=== PATIENT | female | born 1965 | race Caucasian/White ===

== ENCOUNTER 2016-10-06 23:04 | Emergency (ER) | payer OTHER ==
[~2016-10-06] VITALS: Ht 170.2 cm; Wt 58.6 kg
[2016-10-06 23:12] VITALS: BP 139/102; PULSE 115; RESP 14; TEMP 98.3; O2SAT 98
--- NOTE | 2016-10-06 23:52 | RADRPT ---
EXAM DATE/TIME: 10/06/2016 23:21 [place] COMPARISON: No previous studies available for comparison. INDICATIONS : Hand pain. Fell from dog taking off while walking with a leash. MEDICAL HISTORY : None. SURGICAL HISTORY : None. ENCOUNTER: Initial ACUITY: 1 day PAIN SCORE: 7/10 LOCATION: Left upper extremity Hand FINDINGS: Three view examination of the left hand demonstrates no soft tissue swelling, dislocation, or fractur e. The carpal bones appear intact. The interphalangeal and metacarpophalangeal joints are intact. Bony mineralization is normal. CONCLUSION: No acute fracture. Rex Hair MD on October 06, 2016 at 23:49 Board Certified Radiologist. This report was verified electronically.
--- NOTE | 2016-10-07 00:25 | PD ---
HPI Chief Complaint: Injury Time Seen by Provider: 00:20 Travel History International Travel<30 days: No Contact w/Intl Traveler<30days: No Traveled to known affect area: No History of Present Illness HPI The patient is a 51-year-old right-hand dominant female that fell on her hand 2 hours ago while walking the dog. She complains of diffuse pain, mostly around the mid metacarpal regions, metacarpals 2 through 4. Other than minor abrasions , she denies any other injury. PFSH Past Medical History ?: Not Social History Tobacco Use: Yes Review of Systems Except as stated in HPI: all other systems reviewed are Neg Physical Exam Narrative GENERAL: Well-nourished, well-developed patient in minimal apparent distress with her left hand discomfort. Her vital signs show pulse rate 115 blood pressure 139/102 but otherwise normal. SKIN: Focused skin assessment warm/dry. Several abrasions are present on the elbow and right hand. No associated bony deformity is present. HEAD: Normocephalic. EYES: No scleral icterus. No injection or drainage. NECK: Supple, trachea midline. No JVD or lymphadenopathy. CARDIOVASCULAR: Regular rate and rhythm without murmurs, gallops, or rubs. RESPIRATORY: Breath sounds equal bilaterally. No accessory muscle use. GASTROINTESTINAL: Abdomen soft, non-tender, nondistended. MUSCULOSKELETAL: No cyanosis, or edema. No bony deformity is present on the hand, good capillary refill and pinprick is present distally on the fingers. BACK: Nontender without obvious deformity. No CVA tenderness. Data Data Last Documented VS Vital Signs Date Time Temp Pulse Resp B/P Pulse Ox O2 Delivery O2 Flow Rate FiO2 10/06/16 23:12 98.3 115 14 139/102 98 Orders Hand, Complete ([id number]) (10/06/16 ) Ed Urine Pregnancytest Poc (10/06/16 23:16) MDM Medical Decision Making Medical Screen Exam Complete: Yes Emergency Medical Condition: Yes Medical Record Reviewed: Yes Differential Diagnosis Contusion hand, fracture hand, dislocation metacarpals Narrative Course The patient has a contusion of her left hand. Diagnosis Primary Impression: Contusion of left hand Additional Instructions: Keep the abrasions clean and dry and avoid exposing them to dish water. Med/Other Pt SpecificInfo: No Change to Meds Disposition: 01 DISCHARGE HOME Condition: Stable Júnior Pompa MD Oct 07, 2016 00:25
[2016-10-07] MEDS ORDERED: ROSU10 PO (00:27)
== END 2016-10-07 00:47 | disposition home or self-care (01) ==
LOC: PHED 23:04 → PHEFT 10-07 00:47
DX: S60.222A Contusion of left hand, initial encounter (principal); S80.212A Abrasion, left knee, initial encounter; S60.511A Abrasion of right hand, initial encounter; W19.XXXA Unspecified fall, initial encounter; Y93.9 Activity, unspecified; Y92.9 Unspecified place or not applicable; Y99.9 Unspecified external cause status
CPT/HCPCS: 73130; 84703; 99283